=== PATIENT | female | born 2005 | race Caucasian/White ===

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

== ENCOUNTER 2024-02-27 17:27 | Outpatient (CLI) | payer MEDICAID, SELFPAY ==
--- NOTE | 2024-02-27 17:30 | CRLHL7_ITS ---
For Patients: As a result of the Cures Act, medical imaging exams and procedure reports are released immediately into your electronic medical record. You may view this report before your referring provider. If you have questions, please contact your health care provider. INDICATION: First trimester scan, establish dates. COMPARISON: None. TECHNIQUE: Real-time felder-scale imaging of the pelvis was performed. FINDINGS: Sonographic imaging demonstrates a single living intrauterine gestation. The embryo demonstrates a regular cardiac rate measuring 165 beats per minute. The embryo`s crown-rump length measurement of 5.7 cm corresponds to a gestational age of 12 weeks 2 days with a sonographic due date of 09/08/2024. There is a normal-appearing yolk sac. There are no gross abnormalities noted within the embryo at this early state of development. The gestational sac has a normal appearance. There is no evidence of a perigestational hemorrhage. The amount of fluid within the sac appears appropriate for gestational age. The cervix is closed. The myometrium appears normal. Normal right ovary. Left ovary not visualized. There are no suspicious fluid collections noted in the cul-de-sac. IMPRESSION: Single living intrauterine with sonographic gestational age 12 weeks 2 days and sonographic due date of 09/08/2024. Dictated by Hussein Dsouza MD @ 02/28/2024 1:25:23 PM (Electronically Signed)
== END 2024-02-27 17:28 | disposition home or self-care (01) ==
LOC: US 17:28
PROVIDERS: PCP Family Medicine; Visit Provider Advanced Practice Midwife
DX: Z34.91 Encounter for supervision of normal pregnancy, unspecified, first trimester (principal); Z3A.12 12 weeks gestation of pregnancy
CPT/HCPCS: 76801; 80306; 83021; 86592; 86703; 86704; 86706; 86762; 86787; 86803; 86850; 86900; 86901; 87086; 87340

== ENCOUNTER 2024-02-27 18:28 | Outpatient (CLI) | payer MEDICAID, SELFPAY | END 2024-02-27 18:29 | disposition home or self-care (01) | PROVIDERS: PCP Family Medicine; Visit Provider Advanced Practice Midwife | DX: Z34.01 Encounter for supervision of normal first pregnancy, first trimester (principal); F12.91 Cannabis use, unspecified, in remission; Z67.40 Type O blood, Rh positive | CPT/HCPCS: 80306; 83020; 83021; 85660; 86592; 86703; 86704; 86706; 86762; 86787; 86803; 86850; 86900; 86901; 87086; 87340 ==

== ENCOUNTER 2024-03-25 18:23 | Outpatient (CLI) | payer MEDICAID, BC, SELFPAY ==
[2024-03-25 23:01] LABS: Chlamydia DNA Amplified* NOT DETECTED (No Detected); GC DNA Amplified* NOT DETECTED (No Detected)
== END 2024-03-25 18:24 | disposition home or self-care (01) ==
LOC: NFLDREF 18:23
PROVIDERS: PCP Family Medicine; Visit Provider Physician Assistant
DX: Z34.92 Encounter for supervision of normal pregnancy, unspecified, second trimester (principal); Z3A.15 15 weeks gestation of pregnancy
CPT/HCPCS: 87491; 87591

== ENCOUNTER 2024-04-16 10:14 | Outpatient (CLI) | payer BC, MEDICAID, SELFPAY | END 2024-04-16 10:15 | disposition home or self-care (01) | LOC: NFLDREF 10:15 | PROVIDERS: PCP Family Medicine; Visit Provider Obstetrics & Gynecology | DX: Z34.92 Encounter for supervision of normal pregnancy, unspecified, second trimester (principal); Z3A.18 18 weeks gestation of pregnancy | CPT/HCPCS: 87086 ==

== ENCOUNTER 2024-04-19 11:17 | Outpatient (CLI) | payer BC, MEDICAID, SELFPAY ==
--- NOTE | 2024-04-19 11:30 | CRLHL7_ITS ---
For Patients: As a result of the Century Cures Act, medical imaging exams and procedure reports are released immediately into your electronic medical record. You may view this report before your referring provider. If you have questions, please contact your health care provider. CLINICAL HISTORY: Pelvic pain in , urinary frequency and urgency COMPARISON: CT 06/18/2018 TECHNIQUE: Scherer scale and color Doppler images were acquired of the kidneys and urinary bladder. FINDINGS: Small echogenic stones within the right kidney are present measuring 6 millimeters each. No hydronephrosis. The right kidney measures 10.5cm in length and the left kidney measures 10.6cm in length. The renal cortex appears of normal thickness. The urinary bladder appears normal. Color Doppler images reveal a normal appearance of both ureteral jets. There is no evidence of bladder calculi or diverticula. Prevoid bladder volume 272 cc. Postvoid bladder volume 20 cc. IMPRESSION: Nonobstructing right renal calculi. Remainder unremarkable. Dictated by Hussein Dsouza MD @ 04/21/2024 4:39:10 PM (Electronically Signed)
--- NOTE | 2024-04-19 12:15 | CRLHL7_ITS ---
For Patients: As a result of the Century Cures Act, medical imaging exams and procedure reports are released immediately into your electronic medical record. You may view this report before your referring provider. If you have questions, please contact your health care provider. OB ULTRASOUND - SURVEY, 04/19/2024 LMP: 12/07/2023. OMID by LMP: 09/12/2024. GA: 19 w, 1 d. INDICATION: Anatomy. TECHNIQUE: Real time felder scale imaging of the fetus was performed. Transabdominal. FINDINGS: Cervix: Visualized. Technique: Transabdominal. Length of closed cervix: 4.3 cm. Placenta/cord: Anterior. Technique: Transabdominal. Placenta tip to internal OS: 3..6 cm. Umbilical Cord: 3-vessel cord. Placenta insertion: Central. Amniotic Fluid: 3.8 cm SDP (greater than/equal to: 2- less than 8 cm). SURVEY: Observed Structures. Calvarium/Spine: Cerebellum: 1.9 cm, 19 w 6 d. Cisterna Magna: 3.3 mm. Nuchal Fold: 2.7 mm. Lateral Ventricle: 6.5 mm. CSP: Yes. Midline Falx: Yes. Choroid Plexus: Yes. Spine: Yes. Abdomen: Stomach: Yes. Abd Cord Insertion: Yes. Urinary Bladder: Yes. Kidneys: Yes. Diaphragm: Yes. Face: Nose/lips: Yes. Orbital view: Yes. Profile: (See Comments) Limbs: Upper Extremities: Yes. Lower Extremities: Yes. Hands: (See Comments) Feet: Yes. Vascular: 4-Chamber Heart: Yes. LVOT: Yes. RVOT: Yes. 3VV: Yes. 3VTV: Yes. BPD: 4.6 cm. 19 w, 6 d, 78.7 percent. HC: 16.7 cm. 19 w, 2 d, 52.9 percent. AC: 14.0 cm. 19 w, 3 d, 53.2 percent. FL: 2.9 cm. 19 w, 0 d, 35.9 percent. FL/AC ratio: 20.83 percent. HC/AC ratio: 1.2. heart rate: 150 bpm. age by this US: 19 w, 3 d. OMID by this US: 09/10/2024. EFW: 279.9 g. Weight: 0 lbs, 10 oz. Percentile by OMID: 49.5 percent. TECH COMMENTS: Profile and hands suboptimally viewed due to position and activity. ? placenta adam present. ? debris vs septation within stomach. IMPRESSION: 1. Concordance with sonographic and clinical dating. 2. Incomplete visualization of profile and hands due to the position. Possible debris versus artifact associated with the stomach. Short-term follow-up recommended. 3. A large placental adam is present which measures 5.5 cm in length and 2.2 cm in transverse dimension. Hussein Dsouza M.D. Diagnostic Radiologist [email or web address] DW/Dictated by: Hussein Dsouza MD @ 04/21/2024 4:41:00 PM (Electronically Signed)
== END 2024-04-19 11:18 | disposition home or self-care (01) ==
LOC: US 11:18
PROVIDERS: PCP Family Medicine; Visit Provider Obstetrics & Gynecology
DX: O26.839 Pregnancy related renal disease, unspecified trimester (principal); N20.0 Calculus of kidney; R10.2 Pelvic and perineal pain
CPT/HCPCS: 76770; 76805

== ENCOUNTER 2024-05-13 13:08 | Outpatient (CLI) | payer BC, MEDICAID, SELFPAY | END 2024-05-13 13:09 | disposition home or self-care (01) | PROVIDERS: PCP Family Medicine; Visit Provider Obstetrics & Gynecology | DX: O99.322 Drug use complicating pregnancy, second trimester (principal); F12.90 Cannabis use, unspecified, uncomplicated; Z3A.15 15 weeks gestation of pregnancy | CPT/HCPCS: 80306 ==

== ENCOUNTER 2024-06-24 14:24 | Outpatient (CLI) | payer BC, MEDICAID, SELFPAY ==
--- NOTE | 2024-06-24 14:45 | CRLHL7_ITS ---
For Patients: As a result of the Century Cures Act, medical imaging exams and procedure reports are released immediately into your electronic medical record. You may view this report before your referring provider. If you have questions, please contact your health care provider. OBSTETRICAL ULTRASOUND ??? FOLLOW-UP, 06/24/2024 INDICATION: THC use. Follow-up growth. CLINICAL HISTORY: OMID by LMP: 09/08/2024 Gestational Age: 29 weeks 1 day COMPARISON: Ultrasound 05/02/2024, 04/19/2024 TECHNIQUE: Real-time felder-scale transabdominal imaging of the fetus was performed. FINDINGS: Fetus: Single Cervix: Not visualized positioning: Vertex Amniotic Fluid: 3.8 cm SDP Placenta technique: Transabdominal Placenta position: Anterior heart rate: 154 bpm BIOMETRY: BPD: 7.3 cm, 29 weeks 2 days, 63% HC: 26.9 cm, 29 weeks 2 days, 21% AC: 23.7 cm, 28 weeks 0 days, 14% FL: 5.4 cm, 28 weeks 4 days, 19% FL/AC Ratio: 22.70% HC/AC ratio: 1.13 EFW: 1219 grams; 2 lbs. 11 oz. age by this ultrasound: 28 weeks 6 days OMID by this ultrasound: 09/10/2024 Percentile by OMID: 15% IMPRESSION: 1. Sonographic gestational age 28 weeks 6 days and sonographic due date 09/10/2024. Good correlation with dates. Normal interval growth. 2. Estimated weight is 15th percentile. Abdominal circumference is 14th percentile. 3. Please note that the clinical gestational age was adjusted to 09/08/2024 per Maternal Medicine. HUSSEIN SALMON M.D. Diagnostic Radiologist [email or web address] Transcribed: 9:[address]/Dictated by: Hussein Salmon MD @ 06/25/2024 7:05:00 AM (Electronically Signed)
== END 2024-06-24 14:25 | disposition home or self-care (01) ==
LOC: US 14:25
PROVIDERS: PCP Family Medicine; Visit Provider Obstetrics & Gynecology
DX: O99.323 Drug use complicating pregnancy, third trimester (principal); F12.90 Cannabis use, unspecified, uncomplicated; Z3A.29 29 weeks gestation of pregnancy
CPT/HCPCS: 76816

== ENCOUNTER 2024-06-24 14:30 | Outpatient (CLI) | payer BC, MEDICAID, SELFPAY | END 2024-06-24 14:31 | disposition home or self-care (01) | LOC: NFLDREF 06-27 23:31 | PROVIDERS: PCP Family Medicine; Referring Provider Family Medicine; Visit Provider Physician Assistant | DX: Z34.93 Encounter for supervision of normal pregnancy, unspecified, third trimester (principal); Z3A.28 28 weeks gestation of pregnancy | CPT/HCPCS: 86592 ==

== ENCOUNTER 2024-07-17 13:00 | Outpatient (CLI) | payer BC, MEDICAID, SELFPAY ==
--- NOTE | 2024-07-17 14:45 | CRLHL7_ITS ---
For Patients: As a result of the Century Cures Act, medical imaging exams and procedure reports are released immediately into your electronic medical record. You may view this report before your referring provider. If you have questions, please contact your health care provider. OMID by US: 09/08/2024. GA: 32w, 3d. Single. INDICATION: Measuring small for dates. CERVIX: Not visualized. POSITIONING: Vertex. AMNIOTIC FLUID: 5.7 cm SDP. BIOPHYSICAL PROFILE: Total score: 8. Gross body movements: 2. tone: 2. Respiratory activity: 2. Amniotic fluid: 2. (SDP N: Increase 2 x 1 cm) PLACENTA: Technique: Transabdominal. PLACENTA POSITION: Anterior right wall. DOPPLER: heart rate: 135 bpm. Umbilical artery: 2.3 S/D. Biometry: BPD: 8.2 cm. 33w, 1d, 64 percent. HC: 29.2 cm. 32w, 1d, 11 percent. AC: 26.7 cm. 30w, 6d, 10 percent. FL: 5.9 cm. 30w, 5d, 6 percent. FL/AC ratio: 22.07 percent. HC/AC ratio: 1.09. EFW: 1699 g. Weight: 3 lbs, 12 oz. age by this US: 31w, 5d. OMID by this US: 09/13/2024. Percentile by OMID: 9.3 percent. IMPRESSION: 1. Normal biophysical profile 8/8. 2. Spectral Doppler evaluation of the umbilical artery performed. S/D ratio 2.3. 3. Sonographic gestational age 31 weeks 5 days and sonographic due date 09/13/2024. Sonographic age is 5 days behind the clinical age. 4. Estimated weight 9th percentile. Abdominal circumference 10th percentile. Femur length 6th percentile. Hussein Dsouza M.D. Diagnostic Radiologist [email or web address] bM/Dictated by: Hussein Dsouza MD @ 08/08/2024 1:30:00 PM (Electronically Signed)
== END 2024-07-17 13:01 | disposition home or self-care (01) ==
LOC: NFLDREF 13:01
PROVIDERS: PCP Family Medicine; Visit Provider Advanced Practice Midwife
DX: O36.5930 Maternal care for other known or suspected poor fetal growth, third trimester, not applicable or unspecified (principal); Z3A.32 32 weeks gestation of pregnancy
CPT/HCPCS: 76816; 76819; 76820; 80306

== ENCOUNTER 2024-07-22 11:27 | Outpatient (CLI) | payer BC, MEDICAID, SELFPAY ==
--- NOTE | 2024-07-22 11:30 | CRLHL7_ITS ---
For Patients: As a result of the Century Cures Act, medical imaging exams and procedure reports are released immediately into your electronic medical record. You may view this report before your referring provider. If you have questions, please contact your health care provider. OB ULTRASOUND LMP: 12/07/2023. OMID by US: 09/08/2024. GA: 33 w, 1 d. Single. COMPARISON: 07/17/2024, 06/24/2024, 05/02/2024. INDICATION: IUGR. TECHNIQUE: Real time felder scale imaging of the fetus was performed. Transabdominal imaging performed. CERVIX: Not visualized. POSITIONING: Vertex. AMNIOTIC FLUID: 4.1 cm SDP (N: greater than 2 x 1 cm). PLACENTA: Technique: Transabdominal. PLACENTA POSITION: Anterior. DOPPLER: heart rate: 131 bpm. Umbilical artery: 2.9 S/D. Less than 28 w = 5.0. 28-34 w = less than 4.0. IMPRESSION: Transabdominal spectral Doppler evaluation of the umbilical artery performed. Umbilical artery SD ratio 2.9. Hussein Dsouza M.D. Diagnostic Radiologist [email or web address] ESTELLE/Dictated by: Hussein Dsouza MD @ 07/22/2024 8:53:00 PM (Electronically Signed)
== END 2024-07-22 11:28 | disposition home or self-care (01) ==
LOC: US 11:27
PROVIDERS: PCP Family Medicine; Visit Provider Obstetrics & Gynecology
DX: O36.5930 Maternal care for other known or suspected poor fetal growth, third trimester, not applicable or unspecified (principal); Z3A.33 33 weeks gestation of pregnancy
CPT/HCPCS: 76815; 76820

== ENCOUNTER 2024-07-29 11:55 | Outpatient (CLI) | payer BC, MEDICAID, SELFPAY ==
--- NOTE | 2024-07-29 12:15 | CRLHL7_ITS ---
For Patients: As a result of the Century Cures Act, medical imaging exams and procedure reports are released immediately into your electronic medical record. You may view this report before your referring provider. If you have questions, please contact your health care provider. OMID by US: 09/08/2024. GA: 34w, 1d. Single. INDICATION: IUGR. CERVIX: Not visualized. POSITIONING: Vertex. AMNIOTIC FLUID: 5.4 cm SDP. PLACENTA: Technique: Transabdominal. PLACENTA POSITION: Anterior right wall. DOPPLER: heart rate: 126 bpm. Umbilical artery: 2.3 S/D. IMPRESSION: Umbilical artery spectral Doppler evaluation performed. S/D ratio 2.3. Hussein Dsouza M.D. Diagnostic Radiologist [email or web address] bM/Dictated by: Hussein Dsouza MD @ 07/29/2024 4:45:00 PM (Electronically Signed)
== END 2024-07-29 11:56 | disposition home or self-care (01) ==
PROVIDERS: PCP Family Medicine; Visit Provider Obstetrics & Gynecology
DX: O36.5930 Maternal care for other known or suspected poor fetal growth, third trimester, not applicable or unspecified (principal); Z3A.34 34 weeks gestation of pregnancy
CPT/HCPCS: 76815; 76820

== ENCOUNTER 2024-08-05 13:46 | Outpatient (CLI) | payer BC, MEDICAID, SELFPAY ==
--- NOTE | 2024-08-05 13:00 | CRLHL7_ITS ---
For Patients: As a result of the Century Cures Act, medical imaging exams and procedure reports are released immediately into your electronic medical record. You may view this report before your referring provider. If you have questions, please contact your health care provider. OBSTETRICAL ULTRASOUND LIMITED WITH UA DOPPLER, 08/05/2024 INDICATION: IUGR. CLINICAL HISTORY: LMP: 12/07/2023 OMID by US: 09/08/2024 Gestational Age: 35 weeks 1 day COMPARISON: 07/29/2024, 07/22/2024, 07/17/2024. TECHNIQUE: Real-time felder-scale transabdominal imaging of the fetus was performed as well as color Doppler analysis of the umbilical vessels. FINDINGS: Fetus: Single Cervix: Not visualized positioning: Vertex Amniotic Fluid: 3.8 cm SDP Placenta technique: Transabdominal Placenta position: Anterior DOPPLERS: heart rate: 142 bpm Umbilical artery: 2.8 S/D; greater than 34 weeks = less than 3.5 IMPRESSION: Spectral Doppler ultrasound evaluation of the umbilical artery performed. S/D ratio is 2.8, within normal limits. HUSSEIN SALMON M.D. Diagnostic Radiologist [email or web address] Transcribed: 6:[address]/Dictated by: Hussein Salmon MD @ 08/05/2024 3:49:00 PM (Electronically Signed)
== END 2024-08-05 13:47 | disposition home or self-care (01) ==
LOC: US 13:47
PROVIDERS: PCP Family Medicine; Visit Provider Obstetrics & Gynecology
DX: O36.5930 Maternal care for other known or suspected poor fetal growth, third trimester, not applicable or unspecified (principal); Z3A.35 35 weeks gestation of pregnancy
CPT/HCPCS: 76815; 76820

== ENCOUNTER 2024-08-05 15:19 | Outpatient (CLI) | payer BC, MEDICAID, SELFPAY ==
[2024-08-06 19:38] LABS: Strep B DNA Probe POSITIVE (Negative)
[2024-08-06 20:56] LABS: Strep B Susceptibility Needed? No
== END 2024-08-05 15:20 | disposition home or self-care (01) ==
LOC: NFLDREF 15:19
PROVIDERS: PCP Family Medicine; Visit Provider Obstetrics & Gynecology
DX: Z34.93 Encounter for supervision of normal pregnancy, unspecified, third trimester (principal); Z3A.35 35 weeks gestation of pregnancy
CPT/HCPCS: 87081; 87653

== ENCOUNTER 2024-08-12 12:51 | Outpatient (CLI) | payer BC, MEDICAID, SELFPAY ==
--- NOTE | 2024-08-12 13:00 | CRLHL7_ITS ---
For Patients: As a result of the Century Cures Act, medical imaging exams and procedure reports are released immediately into your electronic medical record. You may view this report before your referring provider. If you have questions, please contact your health care provider. OB ULTRASOUND FOLLOW-UP/LIMITED, 08/12/2024 CLINICAL HISTORY: IUGR. COMPARISON: 08/05/2024, 07/29/2024, 07/22/2024. TECHNIQUE: Real time felder scale imaging of the fetus was performed. Transabdominal imaging performed. FINDINGS: OMID by US: 09/08/2024. GA: 36 weeks 1 day. Gestation: Single. Positioning: Vertex. Amniotic Fluid: 4.5 cm SDP. BIOPHYSICAL PROFILE: Gross body movements: 2 tone: 2 Respiratory activity: 2 Amniotic fluid: 2 Total score: 8 Placenta: Technique: TA. Placenta position: Anterior, right wall. Dopplers: heart rate: 149 bpm. Umbilical artery: 2.0 S/D. BIOMETRY: BPD: 9.0 cm, 36 weeks 2 days. 63% HC: 31.6 cm, 35 weeks 4 days. 11% AC: 30.5 cm, 34 weeks 3 days. 16% FL: 6.3 cm, 32 weeks 5 days. <3% FL/AC Ratio: 20.7% HC/AC Ratio: 1.0. EFW: 2385 grams, 5 lb 4 oz. age by this US: 34 weeks 5 days. OMID by this US: 09/18/2024. Percentile by OMID: 10.2% IMPRESSION: 1. Special Doppler evaluation of the umbilical artery performed. S/D ratio 2.0, within normal limits. 2. Sonographic gestational age 34 weeks 5 days and sonographic due date 09/18/2024. Sonographic age 10 days behind the clinical age. 3. Estimated weight 10th percentile. Abdominal circumference 16th percentile. Femur length less than 3rd percentile. 4. Normal biophysical profile of 09/27. Hussein Dsouza M.D. Diagnostic Radiologist [email or web address] Transcribed: 3:39 pm DW/Dictated by: Hussein Dsouza MD @ 08/12/2024 2:28:00 PM (Electronically Signed)
== END 2024-08-12 12:52 | disposition home or self-care (01) ==
LOC: US 12:52
PROVIDERS: PCP Family Medicine; Visit Provider Advanced Practice Midwife
DX: O36.5930 Maternal care for other known or suspected poor fetal growth, third trimester, not applicable or unspecified (principal); Z3A.36 36 weeks gestation of pregnancy
CPT/HCPCS: 76816; 76819; 76820

== ENCOUNTER 2024-08-16 20:12 | Outpatient (CLI) | payer BC, MEDICAID, SELFPAY ==
--- OUTSIDE RECORDS SUMMARY | 2024-08-16 20:18 | XMS_ITS | Clinical Summary ---
Author Organization [place] Address [address] [place] [address] Care Team Providers Care Oil Speculator Name Role Phone Hussein Mckeon MD Primary Care Provider [phone] Social History Tobacco Use Types Packs/Day Years Used Date Smoking Tobacco: Never Assessed Estimated Date of Delivery Comme nts Yes 09/08/2024 Based on Ultraso und Sex and Gender Information Value Date Recorded Sex Assigned at Not on file Legal Sex Female 9:45 PM CDT Gender Identity Not on file Sexual Orientation Not on file Plan of Treatment Health Maintenance Due Date Last Done Comments ADVANCE CARE PLANNING 2003 ANNUAL REVIEW OF HM ORDERS 2003 YEARLY PREVENTIVE VISIT 05/16/2006 HIV SCREENING 05/16/2018 MENINGITIS B VACCINE (1 of 2 - Standard) 2019 HEPATITIS C SCREENING 05/16/2021 COVID-19 VACCINE ( - season) 2023 MATERNAL SCREENING DISCUSSION 02/11/2024 PHQ-2 (once per calendar year) 2024 PAP 05/16/2024 OBGCT (OB) 05/19/2024 TDAP VACCINE () 06/09/2024 GROUP B STREP SCREENING 08/11/2024 CHLAMYDIA SCREENING 10/17/2024 10/18/2023 DTAP/TDAP/TD VACCINE (7 - Td or Tdap) 04/02/2025 04/02/2015, 08/18/2008, 09/16/2004, Additional history exists ZOSTER VACCINE (1 of 2) 05/16/2053 HEPATITIS B VACCINE Completed 2003, 2003, 2003, Additional history exists PNEUMOCOCCAL VACCINE: PEDIATRICS (0 to 5 YEARS) AND AT-RISK PATIENTS (6 to 49 YEARS) Aged Out 09/16/2004, 2003, 2003, Additional history exists No longer eligible based on patient's age to complete this topic HPV VACCINE Completed 10/23/2015, 04/20, 04/02/2015 MENINGITIS VACCINE Aged Out 10/23/2015, 04/02/2015 No longer eligible based on patient's age to complete this topic INFLUENZA VACCINE Completed 04/16/2024, , 12/04/2018, Additional history exists RSV VACCINE (No Doses Required) Completed Insurance [place] [address] [facility] OUT OF STATE [facility] OUT [facility] STATE Care Teams Oil Speculator Relationship Specialty Start Date End Date Hussein Mckeon MD [facility] [address] [facility] [place] [address] PCP - General Family Medicine 04/23/24
--- OUTSIDE RECORDS SUMMARY | 2024-08-16 20:18 | XMS_ITS | Clinical Summary ---
Author Organization [email or web address] [facility] [employer] [facility] Address [address] [place] [id number] Care Team Providers Care Info Print Press Operator Name Role Phone Hussein Mckeon MD Primary Care Provider + Allergies Active Allergy Reactions Criticality Noted Date Comments Apple (Fruit) Hives 07/21/2019 [place] Anaphylaxis High 11/12/2020 Nutritional Supplement-Fiber *Unknown 022 Medications lamoTRIgine (LAMICTAL) 200 mg tablet Take 200 mg by mouth once daily. 1 Active guanFACINE (TENEX) 1 mg tablet Take 1 mg by mouth at bedtime. 1 Active Adderall XR 25 mg Extended-Release capsule Take 25 mg by mouth once daily. 1 Active fluticasone (50 mcg per actuation) nasal solution (FLONASE) SPRAY 2 SPRAY EACH NOSTRIL D 0 Active QUEtiapine (SEROQUEL) 50 mg tablet Take 50 mg by mouth at bedtime if needed. 2 Active Latuda 20 mg tablet 03/14/19 2 3 Active escitalopram oxalate (LEXAPRO) 10 mg tablet TAKE 1/2 TABLET BY MOUTH DAILY FOR 6 DAYS THEN 1 TABLET BY MOUTH DAILY 3 Active DULoxetine (CYMBALTA) 30 mg Delayed-release capsule Take 30 mg by mouth once daily. 2 Active DULoxetine (CYMBALTA) 20 mg Delayed-release capsule Take 20 mg by mouth once daily. 2 Active diclofenac (VOLTAREN) 75 mg delayed-release tablet Take 75 mg by mouth 2 times daily if needed. 3 Active norethindrone-ethin yl estradiol (LOESTRIN 03/11; JUNEL 03/11) 1-20 mg-mcg tabletIndications:U ses oral contraception TAKE 1 TABLET BY MOUTH DAILY 84 Tablet 3 Active tiZANidine (ZANAFLEX) 4 mg tabletIndications:C hest wall pain Take 1 Tablet (4 mg) by mouth every 6 hours if needed for Muscle Spasm. 20 Tablet 4 Active ondansetron (ZOFRAN ODT) 4 mg disintegrating tabletIndications:C hest wall pain Place 1 Tablet (4 mg) on the tongue every 8 hours if needed for Nausea/Vomit ing. 12 Tablet 4 Active lidocaine 4 % topical patchIndications:Le ft-sided chest wall pain Apply to intact skin to cover most painful area for max 12hr per 24hr period. 6 Patch 4 Active Active Problems Problem Noted Date Diagnosed Date Insomnia 07/28/2012 Estimated Date of Delivery Comme nts Yes 09/08/2024 Encounters Date Type Department Care Team Description 05/25/2024 9:17 PM CDT - 05/25/2024 11:01 PM CDT Emergency [facility] [address] [place] [address] Joi Reilly PA Nausea and vomiting in (HC) (Primary Dx) Discharge Disposition: Home Self Care 05/25/2024 Travel from Last 3 Months Immunizations Immunization Administration Dates Next Due DTaP 09/16/2004 [id number] (Pediarix) 2003,2003,0 2003 DTaP-IPV (Kinrix) 08/18/2008 HIB PRP-OMP (PedvaxHIB) 09/16/2004,2003, HPV 9 (Gardasil 9) 10/23/2015,05/01/2015, 016 Hepatitis A (Peds) 10/23/2015,04/02/2015 Hepatitis B (Peds) 2003 Influenza, IIV3 (Age >=3 years) 01/15/2008,02/21,01/20/2004 Influenza, IIV4 12/04/2018,12/14/2015,02/06/2014 Influenza, IIV4 (Age 6-35 Mos) 01/31/2013 MENINGOCOCCAL VACCINE 2 VIAL 2MO-55YO (MENVEO) 10/23/2015,04/02/2015 MMR 08/18/2008,06/02/2004 Pneumococcal Poly,23-Valent (Pneumovax) 2003 Pneumococcal conj 7-Valent (Prevnar 7) 0 09/16/2004,2003,2003,07/16 Tdap 04/02/2015 Varicella Vaccine 08/18/2008,06/02/2004 Family History Medical History Relation Name Comments Good Health Brother 2 [place] Good Health Father Tess Good Health Mother Dejah Relation Name Status Comments Brother 1 Alive Brother 2 [place] Alive Father Tess Alive Mother Dejah Alive Social History Tobacco Use Types Packs/Day Years Used Date Smoking Tobacco: Never Smokeless Tobacco: Never Tobacco Cessation:Counseling Given: Yes Alcohol Use Standard Drinks/Week Comments No 0 (1 standard drink = 0.6 oz pur e alcohol) Social Connections Answer Date Recorded Frequency of Communication with Friends and Fami ly 0 04/05/2022 Financial Resource Strain Answer Date R ecorded Difficulty of Paying Living Expenses 3 04/05/2022 Difficulty of Paying Living Expenses Not on file 04/05/2022 Food Insecurity Answer Date Recorded Worried About Running Out of Food in the Last Ye ar 1 04/05/2022 Transportation Needs Answer Date Record ed Lack of Transportation (Medical) 1 04/05/2022 Housing Stability Answer Date Recorded Unable to Pay for Housing in the Last Year 1 04/05/2022 Interpersonal Safety Answer Date Record ed Are you being hit, kicked, p ushed or yelled at (see row info)? No 05/25/2024 Interpersonal Safety Abuse 12 - 18 Not on file 05/25/2024 Interpersonal Safety Ambulatory Vulnerability No t on file 05/25/2024 Estimated Date of Delivery Comme nts Yes 09/08/2024 Sex and Gender Information Value Date Recorded Sex Assigned at Not on file Legal Sex Female 7:03 AM OUTSOLE CASER Gender Identity Not on file Sexual Orientation Not on file Obstetrics History Para Term AB IAB SAB Ectopic Multiple Livin g Live Births 1 0 0 0 0 0 0 0 0 0 Date Outcome GA Total Labor Labor/2nd/3rd Weight Sex Type Anes PTL Milady A1 A5 Name Clin Current Last Filed Vital Signs Vital Sign Reading Time Taken Comments Blood Pressure 123/79 05/25/2024 9:21 PM CDT Pulse 79 05/25/2024 9:21 PM CDT Temperature 36.5 C (97.7 F) 05/25/2024 9:21 PM CDT Respiratory Rate 16 05/25/2024 9:21 PM CDT Oxygen Saturation 99% 05/25/2024 9:21 PM CDT Inhaled Oxygen Concentration - - Weight 64.2 kg (141 lb 8.6 oz) 05/25/2024 9:21 P M CDT Height 160 cm (5' 3) 05/25/2024 9:21 PM CDT Body Mass Index 25.07 05/25/2024 9:21 PM CDT Plan of Treatment Health Maintenance Due Date Last Done Comments Depression screening for age 12+ 04/25/2017 04/25/2016 HIV for age 15-65 05/16/2018 BMI (ht and wt on same day) for age 18+ 05/16/2021 Hepatitis C screening for age 18-79 05/16/2021 COVID-19 vaccine series ( season) 2023 Pap test for age 21-65 05/16/2024 Chlamydia for age 16-24 10/17/2024 10/18/2023 Influenza Vaccine (Season Ended) 2024 12/04/2018, 12/14/2015, 02/06/2014, Additional history exists Tetanus booster 04/02/2025 04/02/2015 Hepatitis B series for 19+ Completed 11/18, 2003, 2003, Additional history exists Pneumococcal series for age 6-49 Aged Out 09/16/2004, 2003, 2003, Additional history exists No longer eligible based on patient's age to complete this topic Tdap Completed 04/02/2015 HPV series for age 9-26 Completed 10/23/19 16, 05/01/2015, 04/02/2015 Meningococcal series for age 11-21 Aged Out 10/23/2015, 04/02/2015 No longer eligibl e based on patient's age to complete this topic RSV vaccine for adults or (No Doses Required) Completed Medical Devices Implanted Type Area Asp Web Developer Device Identifier Shelf Expiration Date Model / Serial / Lot Tube Vent 1.27mm Collar [id number] [facility] - [id number] Implanted:Qty: 1 on 05/10/2013 by Oscar Patel MD at [facility] Right: Ear [employer] 09/19/2022 [id number] / / [id number] Procedures Procedure Name Priority Date/Time Associated Diagnosis Comments CWS PATH REVIEW HEMATOLOGY STAT 05/25/2024 9:35 PM CDT RED CELL MORPHOLOGY STAT 05/25/2024 9 :35 PM CDT PLATELET ESTIMATE STAT 05/25/2024 9:3 5 PM CDT MANUAL DIFFERENTIAL STAT 05/25/2024 9 :35 PM CDT CBC WITH AUTO DIFFERENTIAL STAT 05/25/2024 9:35 PM CDT BASIC METABOLIC PANEL STAT 05/25/2024 9:35 PM CDT CBC WITH AUTO DIFFERENTIAL STAT 05/25/2024 9:35 PM CDT GC CHLAMYDIA TRACH PROBE STAT 10/18/2023 1:58 AM CDT from Last 3 Months or Most Recently Relevant to Health Maintenance Results * CWS PATH REVIEW HEMATOLOGY (05/25/2024 9:35 PM CDT) PATH COMMENT Reviewed 05/28/2024 9:19 AM CDT [facility] Comment:Reviewed by KBL on Blood BLOOD SPECIMEN / Unknown Venipuncture / Unknown 05/25/2024 9:35 PM CDT 05/25/2024 9:37 PM CDT us [facility] Final R esult [facility] [address] [place] [address], * CBC WITH AUTO DIFFERENTIAL (05/25/2024 9:35 PM CDT) WHITE BLOOD COUNT 5.8 4.5 - 11.0 thou/cu mm 05/27/2024 8:00 AM T [facility] RED BLOOD COUNT 4.10 4.00 - 5.20 mil/cu mm 05/27/2024 8:00 AM [facility] HEMOGLOBIN 12.4 12.0 - 16.0 g/dL 05/27/2024 8:00 AM [facility] HEMATOCRIT 36.8 33.0 - 51.0 % 05/27/2024 8:00 AM [facility] MCV 90 80 - 100 fL 05/27/2024 8:00 AM [facility] MCH 30.2 26.0 - 34.0 pg 05/27/2024 8:00 AM [facility] MCHC 33.7 32.0 - 36.0 g/dL 05/27/2024 8:00 AM [facility] RDW 12.9 11.5 - 15.5 % 05/27/2024 8:00 AM [facility] PLATELET COUNT 154 140 - 440 thou/cu mm 05/27/2024 8:00 AM [facility] MPV 10.9 6.5 - 11.0 fL 05/27/2024 8:00 AM [facility] Blood BLOOD SPECIMEN / Unknown Venipuncture / Unknown 05/25/2024 9:35 PM CDT 05/25/2024 9:37 PM CDT us Joi [facility] Edited Result - Final [facility] [address] [place] [address] * RED CELL MORPHOLOGY (05/25/2024 9:35 PM CDT) Pathologist [facility] RBC COMMENT RBC morphology appears normal RBC morphology appears normal, RBC morphology within normal limits for newborns. 05/25/2024 10:18 PM CDT [facility] Blood BLOOD SPECIMEN / Unknown Venipuncture / Unknown 05/25/2024 9:35 PM CDT 05/25/2024 9:37 PM CDT us Joi [facility] Final R esult [facility] [address] [place] [address] * PLATELET ESTIMATE (05/25/2024 9:35 PM CDT) [facility] PLATELET ESTIMATE Adequate Adequate, No estimate 05/25/2024 10:18 PM CDT [facility] Blood BLOOD SPECIMEN / Unknown Venipuncture / Unknown 05/25/2024 9:35 PM CDT 05/25/2024 9:37 PM CDT us Joi [facility] Final R esult [facility] [address] [place] [address] * MANUAL DIFFERENTIAL (05/25/2024 9:35 PM CDT) Pathologist [facility] % NEUTROPHILS 71.0 % 05/25/2024 10:18 PM CDT [facility] % LYMPHOCYTES 22.0 % 05/25/2024 10:18 PM CDT [facility] % MONOCYTES 7.0 % 05/25/2024 10:18 PM CDT [facility] Blood BLOOD SPECIMEN / Unknown Venipuncture / Unknown 05/25/2024 9:35 PM CDT 05/25/2024 9:37 PM CDT us Jo[facility] Final R esult [facility] [address] [place] [address] * (ABNORMAL) BASIC METABOLIC PANEL (05/25/2024 9:35 PM CDT) SODIUM 133(L) 136 - 145 mmol/L 05/25/2024 9:57 PM T [facility] POTASSIUM 3.5 3.5 - 5.1 mmol/L 05/25/2024 9:57 PM [facility] CHLORIDE 101 98 - 107 mmol/L 05/25/2024 9:57 PM [facility] CO2,TOTAL 22 22 - 29 mmol/L 05/25/2024 9:57 PM [facility] ANION GAP 10 5 - 18 05/25/2024 9:57 PM [facility] GLUCOSE 88 70 - 99 mg/dL 05/25/2024 9:57 PM [facility] CALCIUM 8.6(L) 8.8 - 10.4 mg/dL 05/25/2024 9:57 PM [facility] Comment: Reference ranges for this test were updated on 12/26/2023 to reflect our healthy population more accurately. Reference range changes are not retroactively applied to results, but previous results using the same methodology can be interpreted in the context of the new reference range. BUN 7 6 - 20 mg/dL 05/25/2024 9:57 PM [facility] CREATININE 0.47(L) 0.50 - 0.90 mg/dL 05/25/2024 9:57 PM [facility] BUN/CREAT RATIO 15 10 - 20 9:57 PM [facility] eGFR >90 >90 mL/min/1. 73m2 05/25/2024 9:57 PM [facility] Comment:As of 2021, eG FR is calculated by the CKD-EPI creatinine equation without race adjustment. eGFR can be influenced by muscle mass, exercise, and diet. The reported eGFR is an estimation only and is only applicable if the renal function is stable. Blood BLOOD SPECIMEN / Unknown Venipuncture / Unknown 05/25/2024 9:35 PM CDT 05/25/2024 9:37 PM CDT us Joi [facility] Final R esult Performing Organization Address City/[facility]/ZIP Co de Phone Number [facility] [address] [place] [address] * GC CHLAMYDIA TRACH PROBE (10/18/2023 1:58 AM CDT) CHLAMYDIA PROBE Negative 5:52 PM CDT [facility] N GONORRHOEAE PROBE Negative 10/18/2023 5:52 PM CDT [facility] Other VAGINAL SWAB / Unknown Non-Blood / Unknown 10/18/2023 1:58 AM CDT 10/18/2023 2:03 AM CDT us Jolie Calvo MD MICROBIOLOGY Final Result Performing Organization Address City/[facility] Co de Phone Number [facility] [address] [place] [address], from Last 3 Months or Most Recently Relevant to Health Maintenance Insurance [id number] [place] [id number] Advance Directives * Full Code (Latest Code Status on File) Date Activated Date Inactivated Comments 05/10/2013 9:15 AM 05/10/2013 9:48 AM Care Teams Info Print Press Operator Relationship Specialty Start Date End Date Hussein Mckeon MD [address] [place] [address] PCP - General Family Practice 09/08/19
[2024-08-16 20:42] LABS: Appearance Urine Clear (Clear); Bilirubin Urine Negative (Negative); Blood Urine Negative (Negative); Color Urine Yellow (Yellow); Glucose Urine Negative (Negative); Ketones Urine Trace (Negative); Leukocyte Esterase Urine 1+ (Negative); Nitrite Urine Negative (Negative); Protein Urine 1+ (Negative); Specific Gravity Urine 1.025 (1.000-1.030); Urobilinogen Urine 0.2 (0.2-1.0)
[2024-08-16 21:02] LABS: Amnisure Rom* Negative
[2024-08-16 21:06] LABS: Bacteria Urine Moderate; Squamous Epithelial Cell Urine Few (None-Few)
[2024-08-16 21:08] VITALS: BP 127/82; PULSE 91; RESP 16; TEMP 36.6
--- NOTE | 2024-08-16 21:18 | PC.OBNST ---
NST Note NST Note Start: 08/16/24 20:16 Freq: ONCE Status: Active Protocol: Document 08/16/24 21:17 SJ (Rec: 08/16/24 21:18 SJDarius Desktop) NST Note 1 Para (# of births) 0 EDC 09/08/24 Gestational Age In 36 Weeks & 5 Days Weeks & Days Patient Presented Leaking fluid with Complaint(s) of Reactive Yes Appropriate for Yes Gestational Age RN SMalterer RN Date 08/16/24 Reactive Yes Appropriate for Yes Gestational Age RN CMillet RN Date 08/16/24 OB NST charge Yes Complete NST Note Yes via Write Note The provider's electronic signature indicates the NST is reactive/appropriate for gestational age. *Note to provider: If an addendum is required, open the patient's chart and click on the note under the Nurse/Allied Health tab.
== END 2024-08-16 21:18 | disposition home or self-care (01) ==
LOC: OB OUT 20:12 → OB 20:15
PROVIDERS: PCP Family Medicine; Visit Provider Obstetrics & Gynecology
DX: O47.03 False labor before 37 completed weeks of gestation, third trimester (principal); Z3A.36 36 weeks gestation of pregnancy
CPT/HCPCS: 59025; 81001; 81003; 84112; 87086; G0463

== ENCOUNTER 2024-08-21 14:55 | Outpatient (CLI) | payer BC, MEDICAID, SELFPAY ==
[2024-08-21 15:13] VITALS: PULSE 109; O2SAT 99
[2024-08-21 15:17] VITALS: BP 133/88; PULSE 101
[2024-08-21 15:18] VITALS: RESP 16; TEMP 36.8
[2024-08-21 15:51] LABS: Amnisure Rom* Negative
--- NOTE | 2024-08-21 16:31 | PC.OBNST ---
NST Note NST Note Start: 08/21/24 15:07 Freq: ONCE Status: Active Protocol: Document 08/21/24 16:29 VMM (Rec: 08/21/24 16:31 VMM No Response) NST Note 1 Para (# of births) 0 EDC 09/08/24 Gestational Age In 37 Weeks & 3 Days Weeks & Days Patient Presented Leaking fluid with Complaint(s) of Reactive Yes Appropriate for Yes Gestational Age PACHECO Quintero, RN Date 08/21/24 Reactive Yes Appropriate for Yes Gestational Age PACHECO Padron, PACHECOC Date 08/21/24 OB NST charge Yes Complete NST Note Yes via Write Note The provider's electronic signature indicates the NST is reactive/appropriate for gestational age. *Note to provider: If an addendum is required, open the patient's chart and click on the note under the Nurse/Allied Health tab.
== END 2024-08-21 16:17 | disposition home or self-care (01) ==
LOC: OB OUT 14:57 → OB 14:57
PROVIDERS: PCP Family Medicine; Visit Provider Obstetrics & Gynecology
DX: O47.1 False labor at or after 37 completed weeks of gestation (principal); Z3A.37 37 weeks gestation of pregnancy
CPT/HCPCS: 59025; 84112; G0463

== ENCOUNTER 2024-09-02 06:58 | Inpatient (IN) | payer BC, MEDICAID, SELFPAY ==
[2024-09-02] VITALS (57 sets, daily range): BP systolic 118–141; BP diastolic 66–87; PULSE 71–131; RESP 16–22; TEMP 36.3–36.9; O2SAT 82–100; BMI 30.7
[2024-09-02] MEDS: LACTATED RINGERS 1000 ML 1,000 ML 125 ML IV (08:35)
[2024-09-02] MEDS: OXYTOCIN 30 unit/500 ML in NS 30 UNIT/500 ML BAG IVPB (08:35)
[2024-09-02 08:39] LABS: Hematocrit 33.5 % (33.0-51.0); Hemoglobin* 10.7 gm/dL (12.0-16.0); Immature Granulocytes Abs Auto 0.09 K/uL (0.00-0.30); Immature Granulocytes Pct Auto 1.0 %; Mean Corpuscular HGB Conc 32 gm/dL (32-36); Mean Corpuscular Hemoglobin 25 pg (26-34); Mean Corpuscular Volume 78 fL (80-100); RDW Coefficient of Variation % 17.1 % (11.5-15.5); Red Blood Count 4.31 m/uL (4.00-5.20); White Blood Count* 8.90 K/uL (4.50-11.00)
[2024-09-02 08:42] LABS: Lymphocytes Absolute Auto 1.60 K/uL (0.90-2.90); Slide Review Reflex No
[2024-09-02] MEDS: AMPICILLIN 2 GM in 0.9 % SODIUM CHLORIDE Mini-bag 100 ML IVPB (08:44)
[2024-09-02 11:46] LABS: Cannabinoid Screen Urine Negative (Negative); Methamphetamines Screen Urine Negative (Negative); Tricyclic Antidepressant Urine Negative (Negative)
[2024-09-02] MEDS: AMPICILLIN 1 GM in 0.9 % SODIUM CHLORIDE Mini-bag 100 ML IVPB (12:19)
--- NOTE | 2024-09-02 12:33 | P.LDBA_ITS ---
Subjective History of Present Illness Time Seen by Provider: 12:00 Date Seen: 09/02/24 Narrative: Patient is being admitted to Labor and Delivery for schedule induction of labor for history of FGR in this . She is a 19 year old at 39.1 weeks gestation. Her full history and physical was dictated by Dr. Mercado on 08/19. Please see this for details. Active movement. Denies LOF, vaginal bleeding or abnormal vaginal discharge. Unsure if she's feeling contractions, just intermittent back pain. Specific Issues/Plans G1 Boyfriend: Armaan, Mom: Dejah H&P 08/19 Dr. Mercado # Intrauterine Growth Restriction - EFW 9.3% on 32w3d > resolved to EFW 10.2% at 36w1d Cancelled weekly doppler as of resolution at 36w1d NST weekly?continued out of abundance of precaution (accels to 200bpm) Delivery recommended at 39w1d as medical IOL given possible SGA # THC use; occasionally uses for abdominal pain. Quit as of end of May. NOB UDS: + for THC UDS 2nd trimester: + for THC UDS 3rd trimester: +THC Ultrasound at 28 and 34 weeks 29 weeks: EFW 15%, AC 14% # Depression/Anxiety/Bipolar/ADHD Not currently seeing a therapist; has in the past Hx of medication use for mood, none currently; most recently duloxetine and propranolol # Kidney stones Renal US 04/21: Small echogenic stones within the right kidney are present measuring 6 millimeters each. No hydronephrosis. # GBS positive. Ampicillin in labor. Imaging: * Level II: sent for septation in stomach: 05/02/24 - EFW 22nd percentile, AC 29th percentile. No anomalies commonly detected by ultrasound were identified in the detailed anatomy within the limits of ultrasound. Stomach bubble appears normal. Normal fluid. Cervix long closed. Placental lakes visualized. * 07/17/2024 growth ultrasound: EFW 1699 g or 3 lb 12 oz (9.3%), BPD 64%, HC 11%, AC 10%, FL 6%, SDP 5.7 cm, vertex. UA doppler 2.3, normal. * 08/12: EFW 2385g at 10.2%ile - BPD 63%ile, HC 11%ile, AC 16%ile, FL <3%ile. UA doppler 2.0, MVP 4.5cm. Cephalic. COVID:??declines Flu:??04/16/24 Tdap:??07/08/2024 32wk Mental Health:??07/17/24 Pap: due OB - Problem Based A/P Additional Plan (1) : Status: Acute (2) Attention deficit hyperactivity disorder (ADHD), predominantly inattentive type: Status: Resolved (3) Recurrent major depressive disorder: Status: Acute (4) Marijuana use: Problem details: Reports she stopped mostly at finding out she was , has used occasionally for stomach issues Status: Acute Plan: - Negative drug screen on admission Plan - Continue titrating pitocin per protocol - Pelvic exam: /-2, soft, mid. Consented to AROM - AROM at 1215 with clear fluid. Patient tolerated well. OB Exam Physical Exam Vital signs: Temp Pulse Resp BP Pulse Ox 97.9 F 95 18 127/83 99 09/02/24 12:24 09/02/24 11:59 09/02/24 12:24 09/02/24 11:59 09/02/24 07:10 Narrative: Physical exam: General: No acute distress Psych: Alert and oriented x3, full affect HEENT: Normocephalic, atraumatic Lungs: Unlabored breathing Neuro: No focal deficit. Mentating appropriately Pelvic exam: 80/-2, soft, mid.
[2024-09-02] MEDS: ONDANSETRON 2 MG/ML inj 4 MG IV (13:08)
[2024-09-02] MEDS: LIDOCAINE 1 % PF 30 ML INJECTION (15:30)
[2024-09-02] MEDS: miSOPROStoL 800 MCG/4 TABLET PR (16:17)
--- NOTE | 2024-09-02 16:39 | W.PM.VAGDEL1 ---
Procedure Delivery date: 09/02/24 Procedure Done: Global Events: Labor Induction Intrapartal Events: Labor Induction Delivery augmentation: pitocin Delivery monitor: external FHT Route of delivery: Estimated blood loss (mL): 260 Narrative: The patient is a 19 year-old admitted on 09/02/24 at 39 and 1/7 weeks gestation for induction of labor due to hx of growth restriction in this that has resolved. GBS +, receive intrapartum ampicillin. Labor Analgesia: None Pitocin: For augmentation and 3rd stage management AROM: 09/02/24 at 1215, with clear fluid. Progressed well in labor. Complete: 09/02/24 at 1509 and started pushing shortly after. heart tones during second stage were II due to some variable/late decels during pushing. Recovered spontaneously after cessation of pushing and descent was quick. At 1541 a viable female infant delivered in vertex OA presentation over intact via spontaneous vaginal delivery. The infant's body was delivered in the usual manner without difficulty. The was placed on maternal abdomen. The cord was clamped and cut after a 30-60 second delay. The nose and mouth were bulb suctioned. weight: pending. 8 at 1 minute and 9 at 5 minutes. Shoulder dystocia: None. Nuchal cord: 1, loose, delivered through and reduced after delivery. Placenta delivered spontaneously and complete at 1347 with a 3-vessel cord. Placenta examined and noted to be complete. Placenta was sent to pathology. The cervix and vagina were inspected for lacerations, and 2nd degree perineal, bilateral labial were noted. Laceration(s): 15 cc of 1% lidocaine injected into the laceration sites. 2nd degree perineal and bilateral labial. 2nd degree perineal and right labial was repaired with 2-0 vicryl in a continuous fashion. left labial tear hemostatic and superficial so was left to heal on its own. Misoprostol 800 mcg placed rectally due to intermittent atony. Complications: None Estimated blood loss: 260 cc Sponge and needles counts are correct. Mother and were stable at the time of this note.
[2024-09-02] MEDS: ACETAMINOPHEN 500 MG TABLET 1000 MG PO (18:22)
[2024-09-03] VITALS: BP 106/66; PULSE 81; RESP 16; TEMP 36.9; O2SAT 98
[2024-09-03 04:00] VITALS: BP 107/84; PULSE 74; RESP 16; O2SAT 97
[2024-09-03 06:19] LABS: Hemoglobin* 9.5 gm/dL (12.0-16.0)
--- NOTE | 2024-09-03 07:14 | PM.OBPNVD1 ---
OB - PN:Subj Subjective Date Seen: 09/03/24 Narrative: Amy is a 19 y.o. G 1 P 1 who was admitted to [facility] for IOL for IUGR. ?She had a NVD that was uncomplicated. The patient feels well. ?The pain is well controlled with current medications. ?She has no new complaints. ?She is breast feeding and reports things are going well. the patient has done well.? Vitals have been stable.? She has remained afebrile.? Has a good appetite, is tolerating a general diet. ?She is voiding without difficulty.? She is passing gas and has not had a bowel movement.? She is ambulating and denies any dizziness.? Has small amount of rubra lochia. Problems: Anemia OB - PN: Obj Exam Physical Exam: Vital signs: Temp Pulse Resp BP Pulse Ox O2 Del Method 98.4 F 74 16 107/84 97 Room Air 09/03/24 00:00 09/03/24 04:00 09/03/24 04:00 09/03/24 04:00 09/03/24 04:00 09/03/24 04:00 Narrative: GENERAL APPEARANCE:? normal affect, alert, no distress MOOD:? appropriate CHEST:? clear to auscultation HEART:? regular rate and rhythm ABDOMEN:? soft, non-tender the uterine fundus is At Umbilicus, Midline and is appropriate for the stage of recovery. PERINEUM:? mild edema of the perineum, there is a Perineal Laceration,?2nd degree and bilateral labial that is healing well. EXTREMITIES:? normal and no edema OB - PN: Obj Data Labs Labs: Laboratory Results - last 24 hr 09/02/24 09/02/24 09/03/24 08:30 11:19 06:02 WBC 8.90 RBC 4.31 Hgb 10.7 L 9.5 L Hct 33.5 MCV 78 L MCH 25 L MCHC 32 RDW Coeff of Golden 17.1 H Plt Count 172 Neut % (Auto) 69.2 Lymph % (Auto) 17.6 L [place] % (Auto) 10.3 Eos % (Auto) 1.7 Baso % (Auto) 0.2 Neut # (Auto) 6.15 Lymph # (Auto) 1.60 [place] # (Auto) 0.90 Eos # (Auto) 0.15 Baso # (Auto) 0.02 Abs Immat Gran (auto) 0.09 Imm/Tot Granulo (auto) 1.0 Urine Opiates Screen Negative Ur Oxycodone Screen Negative Urine Methadone Screen Negative Ur Barbiturates Screen Negative U Tricyclic Antidepress Negative Ur Phencyclidine Scrn Negative Ur Amphetamines Screen Negative U Methamphetamines Scrn Negative U Benzodiazepines Scrn Negative Urine Cocaine Screen Negative U Marijuana (THC) Screen Negative Ur Drug Screen Comment See Note Blood Type O Positive Antibody Screen NEGATIVE OB - PN: A/P Delivery Assessment and Plan (1) care and examination immediately after delivery: Status: Acute (2) Attention deficit hyperactivity disorder (ADHD), predominantly inattentive type: Status: Resolved (3) Recurrent major depressive disorder: Status: Acute (4) Marijuana use: Problem details: Reports she stopped mostly at finding out she was , has used occasionally for stomach issues Status: Acute (5) Lactating mother: Status: Acute Plan day: 1 Plan: routine care Comments: Routine care , may see if needed? Hgb 9.5. Iron supplement ordered orally every other day Anticipate discharge home tomorrow
[2024-09-03] MEDS: IBUPROFEN 600 MG TABLET PO (07:24)
[2024-09-03 07:30] VITALS: BP 117/82; PULSE 79; RESP 14; TEMP 36.7; O2SAT 95
[2024-09-03] MEDS: DOCUSATE SODIUM 100 MG CAPSULE PO (09:41)
[2024-09-03] MEDS: ACETAMINOPHEN 500 MG TABLET 1000 MG PO (09:42)
[2024-09-03 12:13] VITALS: BP 104/73; PULSE 80; RESP 14; TEMP 36.3; O2SAT 98
--- NOTE | 2024-09-03 12:24 | PC.SOCIAL ---
Social Service Consult: SW met with patient alone to discuss any resources and supports she needs. Patient states that she is doing well and has everything that she needs for baby. Patient reports that she has a lot of support from her family and her partner's family. Patient denies any mental health concerns during . SW discussed PMADS and having her supports also watch for symptoms of this . Patient and SW discussed that her UDS was negative and baby's is negative, but the cord blood won't result for a few days. SW explained that she would receive a call when that has resulted. SW explained if positive then a CPS report would be made and patient expressed understanding. SW provided encouragement and praise patient for her ability to stop smoking on her own despite others around her continuing. Patient had no concerns or questions for SW at this time.
[2024-09-03] MEDS: FERROUS SULFATE 325 MG TABLET PO (15:47)
[2024-09-03 17:22] VITALS: BP 112/75; PULSE 74; RESP 16; TEMP 36.8; O2SAT 98
[2024-09-03 19:42] VITALS: BP 111/78; PULSE 82; RESP 18; TEMP 36.6; O2SAT 97
[2024-09-04 03:03] VITALS: BP 107/71; PULSE 81; RESP 14; O2SAT 98
[2024-09-04 08:07] VITALS: BP 113/74; PULSE 66; RESP 16; TEMP 36.8; O2SAT 98
[2024-09-04] MEDS: DOCUSATE SODIUM 100 MG CAPSULE PO (08:19)
--- NOTE | 2024-09-04 08:22 | P.DS_ITS ---
DS: Providers Provider Date Seen: 09/04/24 Date of admission: 09/02/24 06:58 Primary care physician: Husseni Mckeon MD Admitting Clinician: Donna Yu MD Consults: 09/02/24 08:18 Consult to Statement Clerks Manager [CONS] Routine Comment: Reason for Consult:: Substance Abuse Screening 09/02/24 20:51 Consult to Statement Clerks Manager [CONS] Routine Comment: Reason for Consult:: Substance Abuse Screening Attending Physician on discharge: Donna Yu MD Date of Discharge: 09/04/24 DS: Diagnosis Discharge Diagnosis (1) care and examination immediately after delivery: Status: Acute (2) Attention deficit hyperactivity disorder (ADHD), predominantly inattentive type: Status: Resolved (3) Recurrent major depressive disorder: Status: Acute Exam Narrative: Exam Narrative: GENERAL APPEARANCE:? normal affect, alert, no distress? MOOD:? appropriate? CHEST:? clear to auscultation and percussion? HEART:? regular rate and rhythm? BREASTS: soft, nontender, no erythema ABDOMEN:? soft, non-tender the uterine fundus is U/1 and is appropriate for the stage of recovery. PERINEUM:? mild edema of the perineum, there is a 2nd degree laceration that is healing well.? EXTREMITIES:? normal and no edema? Const: Vital Signs, click to edit/add: Vital Signs - 24 hr 09/03/24 12:13 09/03/24 17:22 09/03/24 19:42 Temperature 97.4 F L 98.3 F 97.8 F Pulse Rate [Blood Pressure Cuff] 80 74 82 Respiratory Rate 14 16 18 Blood Pressure [Le ft Arm] 104/73 112/75 111/78 Pulse Oximetry 98 98 97 Oxygen Delivery Me thod Room Air Room Air Room Air 09/04/24 03:03 09/04/24 08:07 Temperature 98.3 F Pulse Rate [Blood Pressure Cuff] 81 66 Respiratory Rate 14 16 Blood Pressure [Le ft Arm] 107/71 113/74 Pulse Oximetry 98 98 Oxygen Delivery Me thod Room Air Room Air Documenting provider has reviewed patient's vital signs: yes OB - DS: Summary Hospital Course Hospital Course: Amy is a 19 y.o. G 1 P 1 who was admitted to [facility] for IOL for IUGR. ?She had a NVD that was uncomplicated. The patient feels well. ?The pain is well controlled with current medications. ?She has no new complaints. ?She is bottle feeding and reports things are going well. Discussed ways to help with engorgement. the patient has done well.? Vitals have been stable.? She has remained afebrile.? Has a good appetite, is tolerating a general diet. ?She is voiding without difficulty.? She is passing gas and has not had a bowel movement.? She is ambulating and denies any dizziness.? Has small amount of rubra lochia. She is planning OCPs for prevention. She has a history of depression so mood medications were discussed. Problems: none Peripartum Data delivery method: Vaginal Laceration description: Perineal - 2nd Degree Episiotomy description: None complications: none [place] Infant Gender: Female Discharge Plan: Home Status at Discharge Functional status at discharge: independent ambulation Overall status at discharge: patient is progressing back to baseline Time Spent with Patient Time attestation: Total time spent providing and/or coordinating discharge services: Discharge Plan Discharge Disposition: Home, Self-Care Date of Admission: 09/02/24 06:58 Attending Provider on Discharge: Mary Vallejo Primary Care Provider: Hussein Mckeon Condition: Stable Anticipated Discharge Date/Time: 09/04/24 10:00 Discharge Medications: New docusate sodium 100 mg Capsule 100 mg PO DAILY Qty: 120 0RF Rx Instructions: Take 1-2 tablets daily as needed for constipation. ibuprofen 600 mg Tablet 600 mg PO Q6H PRNQty: 60 0RF Continued [id number] 3 fatty no.1 27-1-300 mg capsule 1 cap PO DAILY cetirizine [Zyrtec] 10 mg tablet 10 mg PO QDAY Qty: 90 3RF fluticasone propionate [Flonase Allergy Relief] 50 mcg/actuation spray,suspension 1 spray intranasal BID Qty: 16 5RF Rx Instructions: administer into each nostril Pataday Once Daily Relief 0.7 % drops 1 drp ophthalmic (eye) Q24H Qty: 5 5RF Patient Comments: As needed acetaminophen [Tylenol Extra Strength] 500 mg tablet 1,000 mg PO Q6H PRN omeprazole 10 mg capsule,delayed release(DR/EC) 10 mg PO ONCE Patient Comments: As needed cephalexin 500 mg tablet 500 mg PO TID Qty: 21 0RF Discontinued ondansetron HCl 4 mg tablet 4 mg PO Q8H Patient Comments: As needed Discharge Orders: Discharge Order (Routine); Ordered 09/04/24 Ordered By: Mary Vallejo Patient Education: OB Vaginal/Bottle Feeding Additional Instructions: Discharge instructions were reviewed with the patient including signs and symptoms of infection and home going medications Nothing vaginally for 6 weeks: no tampons or intercourse Do not drive while taking narcotic pain medication(s) Off Work or School for 8 weeks Symptoms to report to doctor: * Bleeding that saturates more than one pad per hour * Passing clots larger than the size of a golf ball * Pain not relieved by prescribed medication * Fever above 100.4 degrees Fahrenheit * A foul vaginal odor * Difficulty in emotions, mood, and functions * Thoughts of hurting yourself and/or * Painful, reddened area in your breast * Any drainage, redness, or tenderness in your IV/epidural site * Severe headache that doesn't improve after taking medications * Changes in vision, including temporary loss of vision, blurred vision, and/or light sensitivity * Upper abdominal pain (usually under ribs on the right side) * Decrease in urination or painful, frequent urinating * Chest pain * Shortness of breath * Tenderness or pain with redness and/swelling in the calf(s) of your leg 2-week visit: discuss feeding concerns, review control options and screen for anxiety/depression. 6-week visit for an annual exam. consultation services are available to all mothers and babies for the first year after delivery.? To make an appointment, please call [phone]. Activity Level: Activity as Tolerated Discharge Diet: Regular Follow Up Appointments: [facility] [Provider Group] Forms: [facility] Info Instructions
--- NOTE | 2024-09-10 13:57 | PC.SOCIAL ---
JUAN consult follow-up: JAUN called patient and informed that all umbilical cord drug screening came back negative so no CPS report will be made. Patient had no questions or concerns.
== END 2024-09-04 12:16 | disposition home or self-care (01) | DRG 560 ==
PROVIDERS: Admitting Provider Obstetrics & Gynecology; PCP Family Medicine; Visit Provider Obstetrics & Gynecology
DX: O36.5930 Maternal care for other known or suspected poor fetal growth, third trimester, not applicable or unspecified (principal); O99.824 Streptococcus B carrier state complicating childbirth; O99.344 Other mental disorders complicating childbirth; F33.9 Major depressive disorder, recurrent, unspecified; F90.0 Attention-deficit hyperactivity disorder, predominantly inattentive type; O70.1 Second degree perineal laceration during delivery; O62.2 Other uterine inertia; F12.90 Cannabis use, unspecified, uncomplicated; Z3A.39 39 weeks gestation of pregnancy; Z37.0 Single live birth
CPT/HCPCS: 36415; 80306; 85018; 85025; 86592; 86850; 86900; 86901; A9270; J0290; J2003; J2270; J2405; J7120

== ENCOUNTER 2024-10-16 10:06 | Outpatient (CLI) | payer BC, MEDICAID, SELFPAY ==
[2024-10-24 12:56] LABS: Pap Test Digital Imaging Done; Pap Test Reviewed by Path Done
== END 2024-10-16 10:07 | disposition home or self-care (01) ==
PROVIDERS: PCP Family Medicine; Visit Provider Registered Nurse
DX: F41.9 Anxiety disorder, unspecified (principal); R53.83 Other fatigue; Z11.51 Encounter for screening for human papillomavirus (HPV); Z12.4 Encounter for screening for malignant neoplasm of cervix
CPT/HCPCS: 84443; 87624; 87625; 88141; 88142; 88175